=== PATIENT | male | born 1995 | race Caucasian/White ===

== ENCOUNTER 2016-06-21 07:30 | Emergency (ER) | payer BC ==
[~2016-06-21] VITALS: Ht 198.1 cm; Wt 115.9 kg
[2016-06-21] MEDS ORDERED: RITALIN 5MG5 MG/TAB PO (07:34)
[2016-06-21 07:35] VITALS: BP 140/88; PULSE 74; TEMP 98.3
== END 2016-06-21 08:16 | disposition home or self-care (01) ==
LOC: COL.ER 07:30
DX: H18.822 Corneal disorder due to contact lens, left eye (principal); H16.002 Unspecified corneal ulcer, left eye

== ENCOUNTER 2018-12-01 10:16 | Emergency (ER) | payer BC ==
[~2018-12-01] VITALS: Ht 198.1 cm; Wt 129.5 kg
[~2018-12-01 10:16] MED LIST: RITALIN 5MG5 MG/TAB PO
[2018-12-01 10:23] VITALS: TEMP 97
[2018-12-01 11:08] VITALS: BP 138/67; PULSE 67
== END 2018-12-01 11:08 | disposition home or self-care (01) ==
LOC: COL.ER 10:16
DX: M25.572 Pain in left ankle and joints of left foot (principal); F90.9 Attention-deficit hyperactivity disorder, unspecified type

== ENCOUNTER 2018-12-04 08:27 | Emergency (ER) | payer BC ==
[~2018-12-04] VITALS: Ht 198.1 cm; Wt 129.5 kg
[2018-12-04 08:30] VITALS: BP 150/91
[2018-12-04] MEDS ORDERED: NORCO 325 MG-51 TAB PO (08:53)
[2018-12-04 09:15] VITALS: PULSE 81; TEMP 98.9
== END 2018-12-04 09:15 | disposition home or self-care (01) ==
LOC: COL.ER 08:27
DX: M72.2 Plantar fascial fibromatosis (principal); F90.9 Attention-deficit hyperactivity disorder, unspecified type; F17.210 Nicotine dependence, cigarettes, uncomplicated